=== PATIENT | male | born 1945 | race Caucasian/White ===

== ENCOUNTER 2017-04-14 14:43 | Inpatient (IN) | payer MEDICARE ==
[2017-04-14] MEDS: DILTIAZEM HCL 25 MG/5 ML VIAL IV PUSH (15:30)
[2017-04-14 16:26] LABS: PROTHROMBIN TIME - PATIENT 10.4 SEC (9.8-11.6)
[2017-04-14 16:32] LABS: ALT (GPT) 21 U/L (12-78); ANION GAP 10 MEQ/L (5-15); AST (GOT) 54 U/L (15-37); BLOOD UREA NITROGEN 45 MG/DL (7-18); CALCIUM 7.7 MG/DL (8.5-10.1); CHLORIDE 102 MEQ/L (98-107); CREATININE 1.75 MG/DL (0.60-1.30); GLOMERULAR FILTRATION RATE 38 ML/MIN (>89); GLUCOSE,RANDOM 196 MG/DL (74-106); POTASSIUM 3.4 MEQ/L (3.5-5.1); SODIUM (NA) 134 MEQ/L (136-145)
[2017-04-14 16:33] LABS: ALCOHOL LESS THAN 3 MG/DL (0-5)
[2017-04-14 16:34] LABS: ACETAMINOPHEN LESS THAN 2.0 MCG/ML (10.0-30.0)
[2017-04-14 16:39] LABS: AUTOMATED NEUTROPHIL # 8.6 TH/MM3 (1.8-7.7); BASOPHIL % 0.1 % (0.0-2.0); HEMATOCRIT 41.9 % (39.0-51.0); HEMOGLOBIN 14.6 GM/DL (13.0-17.0); LYMPH % 2.9 % (9.0-44.0); LYMPHOCYTE # 0.3 TH/MM3 (1.0-4.8); MEAN CELL VOLUME 99.2 FL (80.0-100.0); MEAN CORPUSCULAR HEMOGLOBIN 34.6 PG (27.0-34.0); MEAN CORPUSCULAR HGB CONC 34.9 % (32.0-36.0); MEAN PLATELET VOLUME 9.2 FL (7.0-11.0); MONOCYTE # 0.4 TH/MM3 (0-0.9); PLATELET COUNT 62 TH/MM3 (150-450); RED BLOOD COUNT 4.23 MIL/MM3 (4.50-5.90); RED CELL DISTRIBUTION WIDTH 13.3 % (11.6-17.2); WHITE BLOOD COUNT 9.2 TH/MM3 (4.0-11.0)
[2017-04-14 16:41] LABS: HEMO FLAGS AUTO DIFF
[2017-04-14 16:42] LABS: ALKALINE PHOSPHATASE 41 U/L (45-117); TOTAL BILIRUBIN ADULT 1.5 MG/DL (0.2-1.0); TROPONIN I 0.05 NG/ML (0.02-0.05)
[2017-04-14 17:00] LABS: BANDS 15 % (0-6); LYMPHOCYTES 2 % (9-44); METAMYELOCYTES 1 % (0-1); MONOCYTES 3 % (0-8); NEUTROPHIL # MANUAL DIFF 8.7 TH/MM3 (1.8-7.7); POLYS (SEG NEUTROPHILS) 79 % (16-70); TOXIC GRANULATION 1+ (NORMAL); TOXIC VACUOLATION PRESENT (NONE SEEN); WBC DIFF SAMPLE 100
[2017-04-14] MEDS: SODIUM CHLORID 0.9% 500 ML INJ 500 ML IV (17:00)
[2017-04-14 17:01] LABS: PLATELET ESTIMATE SMEAR LOW (NORMAL); PLATELET MORPHOLOGY NORMAL (NORMAL)
[2017-04-14 17:02] LABS: SCAN/DIFF FINAL DIFF MANUAL
[2017-04-14] MEDS: LORazepam 2 MG/ML VIAL IV PUSH ×2 (18:28→23:52)
[2017-04-14 19:41] LABS: SALICYLATES LESS THAN 1.7 MG/DL (2.8-20.0)
[2017-04-14] MEDS ORDERED: SODIUM CHLORIDE 0.9% FLUSH 10 ML FLUSH IV FLUSH ×2 (20:00→21:00)
[2017-04-14] MEDS: DEXT 5%-NACL 0.45% 1000 ML INJ 1,000 ML IV (20:00)
[2017-04-14] MEDS ORDERED: GLUCAGON 1 MG/ML VIAL IM (20:00)
[2017-04-14] MEDS ORDERED: LORazepam 1 MG TAB PO (20:00)
[2017-04-14] MEDS ORDERED: LORazepam 2 MG/ML VIAL IV PUSH ×2 (20:00)
[2017-04-14] MEDS ORDERED: DEXTROSE 50% IN WATER 50 ML VIAL(D50) IV PUSH (20:00)
[2017-04-14] MEDS ORDERED: NALOXONE HCL 0.4 MG/ML AMP IV PUSH (20:00)
[2017-04-14] MEDS ORDERED: FLUMAZENIL 0.5 MG/5 ML VIAL IV PUSH (20:00)
[2017-04-14] MEDS: SODIUM CHLOR 0.9% 1000 ML INJ 1,000 ML IV (20:17)
[2017-04-14] MEDS: cefTRIAXone INJ 2,000 MG in SODIUM CHLORIDE 0.9% INJ 100 ML IV (20:17)
[2017-04-14 20:41] LABS: AMMONIA LESS THAN 10 MCMOL/L (11-32)
[2017-04-14 20:46] LABS: BACTERIA, URINE FEW /hpf; BILIRUBIN, URINE NEG (NEG); BLOOD, URINE MOD (NEG); COMMENT (UR) CATH-CULTURE IND; CULTURE IF INDICATED CATH CULTURE IND; GLUCOSE,URINE NEG (NEG); GRANULAR CAST, URINE 10 /lpf; HYALINE CAST, URINE 4 /lpf (RARE); KETONE, URINE NEG (NEG); NITRITE,URINE NEG (NEG); PH, URINE 5.5 (5.0-8.5); SQUAMOUS EPITHELIAL CELL URINE <1 /hpf (0-5); URINE COLOR YELLOW (YELLW/STRAW); URINE LEUKOCYTE ESTERASE NEG (NEG)
[2017-04-14] MEDS: SODIUM CHLORIDE 0.9% FLUSH 10 ML FLUSH IV FLUSH (21:00)
[2017-04-14] MEDS: THIAMINE HCL 100 MG TAB PO (21:11)
[2017-04-14] MEDS: FOLIC ACID 1 MG TAB PO (21:11)
[2017-04-14 23:08] LABS: AMPHETAMINE, URINE NEG (NEG); BARBITURATES, URINE NEG (NEG); BENZODIAZEPINE,URINE NEG (NEG); CANNABINOIDS, URINE NEG (NEG); COCAINE, URINE NEG (NEG)
[2017-04-15] MEDS: CLINDAMYCIN 900 MG/NS PREMIX 50 ML IV ×3 (00:20→15:37)
[2017-04-15 06:50] LABS: AUTOMATED NEUTROPHIL # 6.7 TH/MM3 (1.8-7.7); BASOPHIL % 0.3 % (0.0-2.0); HEMATOCRIT 37.8 % (39.0-51.0); HEMOGLOBIN 13.1 GM/DL (13.0-17.0); LYMPH % 6.5 % (9.0-44.0); LYMPHOCYTE # 0.5 TH/MM3 (1.0-4.8); MEAN CELL VOLUME 99.3 FL (80.0-100.0); MEAN CORPUSCULAR HEMOGLOBIN 34.3 PG (27.0-34.0); MEAN CORPUSCULAR HGB CONC 34.6 % (32.0-36.0); MEAN PLATELET VOLUME 9.8 FL (7.0-11.0); MONO % 5.7 % (0.0-8.0); MONOCYTE # 0.4 TH/MM3 (0-0.9); NEUT % 87.5 % (16.0-70.0); PLATELET COUNT 52 TH/MM3 (150-450); RED BLOOD COUNT 3.81 MIL/MM3 (4.50-5.90); RED CELL DISTRIBUTION WIDTH 13.6 % (11.6-17.2); WHITE BLOOD COUNT 7.7 TH/MM3 (4.0-11.0)
[2017-04-15 06:59] LABS: HEMO FLAGS AUTO DIFF
[2017-04-15 07:10] LABS: ALBUMIN 2.6 GM/DL (3.4-5.0); ALT (GPT) 20 U/L (12-78); ANION GAP 9 MEQ/L (5-15); AST (GOT) 40 U/L (15-37); BICARBONATE 22.6 MEQ/L (21.0-32.0); BLOOD UREA NITROGEN 38 MG/DL (7-18); CALCIUM 7.6 MG/DL (8.5-10.1); CHLORIDE 107 MEQ/L (98-107); CREATININE 1.02 MG/DL (0.60-1.30); GLOMERULAR FILTRATION RATE 72 ML/MIN (>89); GLUCOSE,RANDOM 109 MG/DL (74-106); POTASSIUM 3.1 MEQ/L (3.5-5.1); SODIUM (NA) 139 MEQ/L (136-145)
[2017-04-15 07:18] LABS: ALKALINE PHOSPHATASE 34 U/L (45-117); TOTAL BILIRUBIN ADULT 1.2 MG/DL (0.2-1.0); TOTAL PROTEIN 6.1 GM/DL (6.4-8.2)
[2017-04-15] MEDS: DEXT 5%-NACL 0.45% 1000 ML INJ 1,000 ML IV (07:55)
[2017-04-15 08:00] LABS: BANDS 23 % (0-6); LYMPHOCYTES 2 % (9-44); MONOCYTES 3 % (0-8); NEUTROPHIL # MANUAL DIFF 7.3 TH/MM3 (1.8-7.7); PLATELET ESTIMATE SMEAR LOW (NORMAL); POLYS (SEG NEUTROPHILS) 72 % (16-70); WBC DIFF SAMPLE 100
[2017-04-15 08:01] LABS: PLATELET MORPHOLOGY NORMAL (NORMAL); SCAN/DIFF FINAL DIFF MANUAL
[2017-04-15 08:02] LABS: TOXIC GRANULATION 1+ (NORMAL)
[2017-04-15] MEDS: APIXABAN 5 MG TABLET PO ×2 (09:15→22:10)
[2017-04-15] MEDS: METOPROLOL SUCCINATE 50 MG EXTENDED RELEASE TAB PO (09:15)
[2017-04-15] MEDS: FOLIC ACID 1 MG TAB PO (09:16)
[2017-04-15] MEDS: chlordiazePOXIDE 25 MG CAP PO ×3 (09:16→18:03)
[2017-04-15] MEDS: SODIUM CHLORIDE 0.9% FLUSH 10 ML FLUSH IV FLUSH ×2 (09:17→21:12)
[2017-04-15] MEDS: PIPERACIL-TAZO 4.5 GM PREMIX 100 ML IV ×3 (09:17→21:00)
[2017-04-15] MEDS: THIAMINE HCL 100 MG TAB PO (09:39)
[2017-04-15] MEDS: POTASSIUM CHLORIDE 10 MEQ CONTROLLED RELEASE TAB PO (11:56)
[2017-04-15] MEDS: LORazepam 2 MG/ML VIAL IV PUSH (21:12)
[2017-04-15] MEDS: ATORVASTATIN 20 MG TAB PO (22:11)
[2017-04-16] MEDS: CLINDAMYCIN 900 MG/NS PREMIX 50 ML IV ×4 (00:04→23:22)
[2017-04-16] MEDS: PIPERACIL-TAZO 4.5 GM PREMIX 100 ML IV ×5 (03:47→20:38)
[2017-04-16] MEDS: LORazepam 2 MG/ML VIAL IV PUSH (04:30)
[2017-04-16 06:30] LABS: AUTOMATED NEUTROPHIL # 4.5 TH/MM3 (1.8-7.7); BASOPHIL % 0.1 % (0.0-2.0); EOSINOPHIL % 0.5 % (0.0-4.0); HEMATOCRIT 37.6 % (39.0-51.0); HEMOGLOBIN 12.8 GM/DL (13.0-17.0); LYMPH % 11.6 % (9.0-44.0); LYMPHOCYTE # 0.7 TH/MM3 (1.0-4.8); MEAN CELL VOLUME 101.1 FL (80.0-100.0); MEAN CORPUSCULAR HEMOGLOBIN 34.4 PG (27.0-34.0); MEAN PLATELET VOLUME 9.5 FL (7.0-11.0); MONO % 9.6 % (0.0-8.0); MONOCYTE # 0.5 TH/MM3 (0-0.9); NEUT % 78.2 % (16.0-70.0); PLATELET COUNT 47 TH/MM3 (150-450); RED BLOOD COUNT 3.72 MIL/MM3 (4.50-5.90); RED CELL DISTRIBUTION WIDTH 13.8 % (11.6-17.2); WHITE BLOOD COUNT 5.7 TH/MM3 (4.0-11.0)
[2017-04-16 06:35] LABS: HEMO FLAGS AUTO DIFF
[2017-04-16 07:01] LABS: ANION GAP 11 MEQ/L (5-15); BICARBONATE 23.5 MEQ/L (21.0-32.0); BLOOD UREA NITROGEN 31 MG/DL (7-18); CALCIUM 8.3 MG/DL (8.5-10.1); CHLORIDE 108 MEQ/L (98-107); CREATININE 1.09 MG/DL (0.60-1.30); GLOMERULAR FILTRATION RATE 66 ML/MIN (>89); GLUCOSE,RANDOM 96 MG/DL (74-106); POTASSIUM 3.7 MEQ/L (3.5-5.1); SODIUM (NA) 142 MEQ/L (136-145)
[2017-04-16 07:55] LABS: PLATELET ESTIMATE SMEAR LOW (NORMAL); PLATELET MORPHOLOGY NORMAL (NORMAL); SCAN/DIFF AUTO DIFF CONFIRMED
[2017-04-16] MEDS: chlordiazePOXIDE 25 MG CAP PO ×4 (09:00→18:22)
[2017-04-16] MEDS: FOLIC ACID 1 MG TAB PO ×2 (09:25→18:21)
[2017-04-16] MEDS: APIXABAN 5 MG TABLET PO ×3 (09:25→20:37)
[2017-04-16] MEDS: SODIUM CHLORIDE 0.9% FLUSH 10 ML FLUSH IV FLUSH ×2 (09:27→20:37)
[2017-04-16] MEDS: METOPROLOL SUCCINATE 50 MG EXTENDED RELEASE TAB PO ×2 (09:27→18:21)
[2017-04-16] MEDS: THIAMINE HCL 100 MG TAB PO ×2 (09:27→18:21)
[2017-04-16] MEDS: GADODIAMIDE PF 287 MG/ML 20 ML VIAL (for RAD MRI) IV PUSH (16:53)
[2017-04-16] MEDS: ATORVASTATIN 20 MG TAB PO (20:37)
[2017-04-16] MEDS: LORazepam 2 MG TAB PO (20:37)
[2017-04-17] MEDS: PIPERACIL-TAZO 4.5 GM PREMIX 100 ML IV ×3 (02:52→14:18)
[2017-04-17] MEDS: METOPROLOL SUCCINATE 50 MG EXTENDED RELEASE TAB PO (09:00)
[2017-04-17] MEDS: CLINDAMYCIN 900 MG/NS PREMIX 50 ML IV ×2 (09:26→15:16)
[2017-04-17] MEDS: SODIUM CHLORIDE 0.9% FLUSH 10 ML FLUSH IV FLUSH ×2 (09:27→20:05)
[2017-04-17] MEDS: FOLIC ACID 1 MG TAB PO (09:27)
[2017-04-17] MEDS: APIXABAN 5 MG TABLET PO ×2 (09:27→20:05)
[2017-04-17] MEDS: THIAMINE HCL 100 MG TAB PO (09:28)
[2017-04-17] MEDS: LIDOCAINE HCL 1% 50 ML VIAL (10:00)
[2017-04-17] MEDS: ceFAZolin 2 GM PREMIX 50 ML IV (18:06)
[2017-04-17] MEDS: ATORVASTATIN 20 MG TAB PO (20:04)
[2017-04-18] MEDS: ceFAZolin 2 GM PREMIX 50 ML IV ×3 (02:02→17:25)
[2017-04-18] MEDS: SODIUM CHLORIDE 0.9% FLUSH 10 ML FLUSH IV FLUSH ×3 (02:02→21:13)
[2017-04-18 05:07] LABS: AUTOMATED NEUTROPHIL # 3.3 TH/MM3 (1.8-7.7); BASOPHIL % 0.4 % (0.0-2.0); EOSINOPHIL % 0.9 % (0.0-4.0); HEMATOCRIT 38.4 % (39.0-51.0); HEMOGLOBIN 13.2 GM/DL (13.0-17.0); LYMPH % 13.9 % (9.0-44.0); LYMPHOCYTE # 0.6 TH/MM3 (1.0-4.8); MEAN CELL VOLUME 99.4 FL (80.0-100.0); MEAN CORPUSCULAR HEMOGLOBIN 34.1 PG (27.0-34.0); MEAN CORPUSCULAR HGB CONC 34.4 % (32.0-36.0); MEAN PLATELET VOLUME 9.5 FL (7.0-11.0); MONOCYTE # 0.3 TH/MM3 (0-0.9); NEUT % 78.8 % (16.0-70.0); PLATELET COUNT 79 TH/MM3 (150-450); RED BLOOD COUNT 3.87 MIL/MM3 (4.50-5.90); RED CELL DISTRIBUTION WIDTH 13.8 % (11.6-17.2); WHITE BLOOD COUNT 4.2 TH/MM3 (4.0-11.0)
[2017-04-18 05:18] LABS: HEMO FLAGS DIFF FINAL
[2017-04-18] MEDS: THIAMINE HCL 100 MG TAB PO (08:53)
[2017-04-18] MEDS: APIXABAN 5 MG TABLET PO ×2 (08:53→21:13)
[2017-04-18] MEDS: METOPROLOL SUCCINATE 50 MG EXTENDED RELEASE TAB PO (08:53)
[2017-04-18] MEDS: LEVOFLOXACIN 750 MG TAB PO (08:54)
[2017-04-18] MEDS: FOLIC ACID 1 MG TAB PO (08:54)
[2017-04-18] MEDS: GENTAMICIN SULFATE 0.1% CREAM 15 GM TOPICAL (14:30)
[2017-04-18] MEDS: ATORVASTATIN 20 MG TAB PO (21:13)
[2017-04-19] MEDS: ceFAZolin 2 GM PREMIX 50 ML IV ×2 (01:35→09:41)
[2017-04-19] MEDS: SODIUM CHLORIDE 0.9% FLUSH 10 ML FLUSH IV FLUSH ×2 (09:40→20:32)
[2017-04-19] MEDS: FOLIC ACID 1 MG TAB PO (09:40)
[2017-04-19] MEDS: LEVOFLOXACIN 750 MG TAB PO (09:40)
[2017-04-19] MEDS: APIXABAN 5 MG TABLET PO ×2 (09:40→20:33)
[2017-04-19] MEDS: METOPROLOL SUCCINATE 50 MG EXTENDED RELEASE TAB PO (09:40)
[2017-04-19] MEDS: THIAMINE HCL 100 MG TAB PO (09:42)
[2017-04-19] MEDS: GENTAMICIN SULFATE 0.1% CREAM 15 GM TOPICAL (12:41)
[2017-04-19] MEDS: AMPICILLIN-SULBACTAM INJ 3 GM in SODIUM CHLORIDE 0.9% INJ 100 ML IV ×2 (14:56→20:32)
[2017-04-19] MEDS: ATORVASTATIN 20 MG TAB PO (20:32)
[2017-04-20] MEDS: AMPICILLIN-SULBACTAM INJ 3 GM in SODIUM CHLORIDE 0.9% INJ 100 ML IV ×4 (02:09→19:32)
[2017-04-20] MEDS: SODIUM CHLORIDE 0.9% FLUSH 10 ML FLUSH IV FLUSH ×2 (08:46→19:33)
[2017-04-20] MEDS: APIXABAN 5 MG TABLET PO ×2 (08:47→19:33)
[2017-04-20] MEDS: LEVOFLOXACIN 750 MG TAB PO (08:47)
[2017-04-20] MEDS: THIAMINE HCL 100 MG TAB PO (08:47)
[2017-04-20] MEDS: METOPROLOL SUCCINATE 50 MG EXTENDED RELEASE TAB PO (08:47)
[2017-04-20] MEDS: ATORVASTATIN 20 MG TAB PO (19:33)
[2017-04-21] MEDS: AMPICILLIN-SULBACTAM INJ 3 GM in SODIUM CHLORIDE 0.9% INJ 100 ML IV ×2 (02:49→08:51)
[2017-04-21] MEDS: LEVOFLOXACIN 750 MG TAB PO (08:50)
[2017-04-21] MEDS: APIXABAN 5 MG TABLET PO (08:50)
[2017-04-21] MEDS: METOPROLOL SUCCINATE 50 MG EXTENDED RELEASE TAB PO (08:50)
[2017-04-21] MEDS: SODIUM CHLORIDE 0.9% FLUSH 10 ML FLUSH IV FLUSH (08:50)
[2017-04-21] MEDS: THIAMINE HCL 100 MG TAB PO (08:50)
== END 2017-04-21 14:13 | DRG 854 ==
LOC: N04B 04-17 00:53 → NEPE 14:43 → NEDA 18:30 → HCIS 21:20
PROC: 0JBQ0ZZ Excision of Right Foot Subcutaneous Tissue and Fascia, Open Approach (ICD-10-PCS; principal; 2017-04-17)
DX: A41.01 Sepsis due to Methicillin susceptible Staphylococcus aureus (principal); F10.231 Alcohol dependence with withdrawal delirium; N17.9 Acute kidney failure, unspecified; L03.115 Cellulitis of right lower limb; I48.91 Unspecified atrial fibrillation; G62.9 Polyneuropathy, unspecified; L97.519 Non-pressure chronic ulcer of other part of right foot with unspecified severity; I10 Essential (primary) hypertension; E16.2 Hypoglycemia, unspecified; E78.5 Hyperlipidemia, unspecified; R65.20 Severe sepsis without septic shock; A41.4 Sepsis due to anaerobes; E87.6 Hypokalemia; Y90.0 Blood alcohol level of less than 20 mg/100 ml; Z79.01 Long term (current) use of anticoagulants; Z87.891 Personal history of nicotine dependence
CPT/HCPCS: 70450; 71045; 73660; 73720; 80048; 80053; 80307; 81001; 82140; 82948; 84443; 84484; 85007; 85025; 85027; 85610; 85730; 86403; 87040; 87070; 87077; 87086; 87147; 87185; 87186; 87205; 93005; 93923; 96361; 96374; 96375; 97110-GP; 97116-GP; 97162-GP; 99285-25

== ENCOUNTER 2017-05-31 16:56 | Emergency (ER) | payer MEDICARE ==
[~2017-05-31 16:56] MED LIST: AMLO10TA2 PO; APIX5TAB PO; ATOR20TA15 PO; AUGM875T3 PO; LEVA750T9 PO; METO1TAB9 PO; MULT1TAB46 PO; THIA100 PO
[2017-05-31 17:26] VITALS: BP 106/63; PULSE 78; RESP 20; TEMP 97.3; O2SAT 98
[2017-05-31 20:05] LABS: AUTOMATED NEUTROPHIL # 2.4 TH/MM3 (1.8-7.7); BASOPHIL % 0.7 % (0.0-2.0); EOSINOPHIL # 0.1 TH/MM3 (0-0.4); EOSINOPHIL % 1.5 % (0.0-4.0); HEMATOCRIT 42.9 % (39.0-51.0); HEMOGLOBIN 14.9 GM/DL (13.0-17.0); LYMPH % 32.1 % (9.0-44.0); LYMPHOCYTE # 1.4 TH/MM3 (1.0-4.8); MEAN CELL VOLUME 95.1 FL (80.0-100.0); MEAN CORPUSCULAR HGB CONC 34.7 % (32.0-36.0); MEAN PLATELET VOLUME 7.9 FL (7.0-11.0); MONO % 12.1 % (0.0-8.0); MONOCYTE # 0.5 TH/MM3 (0-0.9); NEUT % 53.6 % (16.0-70.0); PLATELET COUNT 175 TH/MM3 (150-450); RED BLOOD COUNT 4.51 MIL/MM3 (4.50-5.90); RED CELL DISTRIBUTION WIDTH 14.3 % (11.6-17.2); WHITE BLOOD COUNT 4.5 TH/MM3 (4.0-11.0)
[2017-05-31 20:32] LABS: ALBUMIN 2.5 GM/DL (3.4-5.0); AST (GOT) 12 U/L (15-37); BICARBONATE 22.4 MEQ/L (21.0-32.0); BLOOD UREA NITROGEN 13 MG/DL (7-18); CALCIUM 7.8 MG/DL (8.5-10.1); CHLORIDE 107 MEQ/L (98-107); CREATININE 1.15 MG/DL (0.60-1.30); GLOMERULAR FILTRATION RATE 62 ML/MIN (>89); GLUCOSE,RANDOM 105 MG/DL (74-106); SODIUM (NA) 140 MEQ/L (136-145)
[2017-05-31 20:33] LABS: BILIRUBIN, URINE NEG (NEG); BLOOD, URINE SMALL (NEG); CALCIUM OXALATE CRYSTALS,URINE FEW /hpf; GLUCOSE,URINE NEG (NEG); HYALINE CAST, URINE 1 /lpf (RARE); KETONE, URINE NEG (NEG); MUCUS URINE FEW /lpf (OCC); NITRITE,URINE NEG (NEG); SQUAMOUS EPITHELIAL CELL URINE <1 /hpf (0-5); URINE COLOR YELLOW (YELLW/STRAW); URINE LEUKOCYTE ESTERASE NEG (NEG)
[2017-05-31 20:34] LABS: ALT (GPT) 10 U/L (12-78)
[2017-05-31 20:37] LABS: ALKALINE PHOSPHATASE 70 U/L (45-117); TOTAL BILIRUBIN ADULT 0.8 MG/DL (0.2-1.0); TOTAL PROTEIN 5.5 GM/DL (6.4-8.2)
[2017-06-01 00:24] VITALS: BP 121/69; PULSE 80; RESP 18; O2SAT 98
[2017-06-01] MEDS ORDERED: BACT800T5 PO (01:23)
[2017-06-01] MEDS ORDERED: SULFAMETHOXAZOLE-TRIMETHOPRIM DS 800-160 MG TAB PO ONE (01:30)
[2017-06-01] MEDS ORDERED: POTASSIUM CHLORIDE 20 MEQ CONTROLLED RELEASE TAB PO ONE (01:30)
--- NOTE | 2017-06-01 01:30 | PD ---
HPI Chief Complaint: Abnormal Results Time Seen by Provider: 01:25 Travel History International Travel<30 days: No Contact w/Intl Traveler<30days: No Traveled to known affect area: No History of Present Illness HPI 71-year-old white male presents emergency department requesting evaluation of diarrhea. He states that he has been having loose stools now for nearly 2 months. He states that he has been eating and drinking normally. He has had no fever or chills. No chest pain, shortness of breath, nausea, vomiting, abdominal pain or urinary symptoms. Denies any hematochezia or melena. No dizziness or passing out. He states that his finally made him come in this evening to be evaluated. He has not seen a medical doctor regarding this as of yet. PFSH Past Medical History High Cholesterol: Yes Diabetes: Yes Hypertension: Yes Tetanus Vaccination: > 5 Years Past Surgical History Surgical History: No Previous Surgery Social History Alcohol Use: Yes (beer daily) Tobacco Use: No Substance Use: No Allergies-Medications (Allergen,Severity, Reaction): Coded Allergies: No Known Allergies (Verified Allergy, Unknown, 04/14/17) Reported Meds & Prescriptions Reported Meds & Active Scripts Active Bactrim DS (Sulfamethoxazole-Trimethoprim) 800-160 Mg Tab 1 Tab PO BID Multi Vitamin Daily (Multiple Vitamin) 1 Tab Tab 1 Tab PO DAILY 30 Days Gnp Vitamin B-1 (Thiamine HCl) 100 Mg Tab 100 Mg PO DAILY 30 Days Metoprolol Succinate ER 24 HR (Metoprolol Succinate) 50 Mg Tab 100 Mg PO DAILY 30 Days Eliquis (Apixaban) 5 Mg Tab 5 Mg PO BID Amlodipine (Amlodipine Besylate) 10 Mg Tab 10 Mg PO DAILY Atorvastatin (Atorvastatin Calcium) 20 Mg Tab 20 Mg PO HS Review of Systems Except as stated in HPI: all other systems reviewed are Neg Physical Exam Narrative GENERAL: Well-developed, well-nourished in no apparent distress. Nontoxic appearing. Patient is examined with a nurse present. HEAD: Normocephalic, atraumatic. EYES: Pupils equal round and reactive. Extraocular motions intact. No scleral icterus. No injection or drainage. ENT: Nose clear. Throat without erythema, tonsillar hypertrophy or exudate. Uvula midline. Airway patent. NECK: Trachea midline. Supple, nontender, moves head freely. No central bony tenderness or spasm. CARDIOVASCULAR: Regular rate and rhythm without murmurs, gallops, or rubs. RESPIRATORY: Clear to auscultation. Breath sounds equal bilaterally. No wheezes , rales, or rhonchi. GASTROINTESTINAL: Abdomen soft, non-tender, nondistended. No hepato-splenomegaly , or palpable masses. No guarding. Rectal: The rectum is devoid of stool. He has light brown mucus. Prostate is normal. No masses. Guaiac negative. EXTREMITIES: No clubbing, cyanosis, or edema. No joint tenderness. BACK: Nontender without deformity. No flank tenderness. NEUROLOGICAL: Awake, alert and oriented x 3 .Cranial nerves grossly intact. Motor and sensory grossly within normal limits. Normal speech. Data Data Last Documented VS Vital Signs Date Time Temp Pulse Resp B/P (MAP) Pulse Ox O2 Delivery O2 Flow Rate FiO2 06/01/17 00:24 80 18 121/69 (86) 98 Room Air 05/31/17 17:26 97.3 Orders Orders Complete Blood Count With Diff (05/31/17 17:32) Comprehensive Metabolic Panel (05/31/17 17:32) Urinalysis - C+S If Indicated (05/31/17 17:32) Sulfamet-Trimeth Ds 800-160 Mg (Bactrim (06/01/17 01:30) Ed Discharge Order (06/01/17 01:21) Potassium Chloride (Kcl) (06/01/17 01:30) Labs Laboratory Tests Test 05/31/17 18:50 White Blood Count 4.5 TH/MM3 Red Blood Count 4.51 MIL/MM3 Hemoglobin 14.9 GM/DL Hematocrit 42.9 % Mean Corpuscular Volume 95.1 FL Mean Corpuscular Hemoglobin 33.0 PG Mean Corpuscular Hemoglobin Concent 34.7 % Red Cell Distribution Width 14.3 % Platelet Count 175 TH/MM3 Mean Platelet Volume 7.9 FL Neutrophils (%) (Auto) 53.6 % Lymphocytes (%) (Auto) 32.1 % Monocytes (%) (Auto) 12.1 % Eosinophils (%) (Auto) 1.5 % Basophils (%) (Auto) 0.7 % Neutrophils # (Auto) 2.4 TH/MM3 Lymphocytes # (Auto) 1.4 TH/MM3 Monocytes # (Auto) 0.5 TH/MM3 Eosinophils # (Auto) 0.1 TH/MM3 Basophils # (Auto) 0.0 TH/MM3 CBC Comment DIFF FINAL Differential Comment Urine Color YELLOW Urine Turbidity HAZY Urine pH 6.0 Urine Specific [place] 1.021 Urine Protein 30 mg/dL Urine Glucose (UA) NEG mg/dL Urine Ketones NEG mg/dL Urine Occult Blood SMALL Urine Nitrite NEG Urine Bilirubin NEG Urine Urobilinogen LESS THAN 2.0 MG/DL Urine Leukocyte Esterase NEG Urine RBC 39 /hpf Urine WBC 3 /hpf Urine Squamous Epithelial Cells <1 /hpf Urine Calcium Oxalate Crystals FEW /hpf Urine Hyaline Casts 1 /lpf Urine Mucus FEW /lpf Microscopic Urinalysis Comment CULT NOT INDICATED Blood Urea Nitrogen 13 MG/DL Creatinine 1.15 MG/DL Random Glucose 105 MG/DL Total Protein 5.5 GM/DL Albumin 2.5 GM/DL Calcium Level 7.8 MG/DL Alkaline Phosphatase 70 U/L Aspartate Amino Transf (AST/SGOT) 12 U/L Alanine Aminotransferase (ALT/SGPT) 10 U/L Total Bilirubin 0.8 MG/DL Sodium Level 140 MEQ/L Potassium Level 3.2 MEQ/L Chloride Level 107 MEQ/L Carbon Dioxide Level 22.4 MEQ/L Anion Gap 11 MEQ/L Estimat Glomerular Filtration Rate 62 ML/MIN [facility] Medical Decision Making Medical Screen Exam Complete: Yes Emergency Medical Condition: Yes Medical Record Reviewed: Yes Differential Diagnosis Differential diagnosis: Anemia, GI bleed, infectious diarrhea, colitis, electrolyte abnormality, UTI, IBS Narrative Course Patient's laboratory tests have been reviewed. His potassium is 3.2 he is given 40 mEq p.o. His rectal exam is guaiac negative. There is no stool in the vault. He is resting comfortable. His been eating and drinking. I do not believe that he is septic. He does not report any foul smelling stool consistent with C. difficile. His urine does show WBCs and RBCs. He will be treated for potential UTI I reviewed his record from prior visit showing UTI with similar presentation. Patient given Bactrim DS and 40 mg of potassium p.o. at discharge. This is diarrhea, UTI, hypokalemia [facility] Point of Care Internal Pos. & Neg. Controls: Passed Fecal Specimen Occult Blood: Negative Diagnosis Primary Impression: Diarrhea Additional Impressions: UTI Hypokalemia Referrals: [facility] 2 days Patient Instructions: General Instructions Additional Instructions: Rest. Increase fluids. Bactrim DS. Avoid alcohol. Eat a potassium rich diet. Recheck with the [facility] in 2 days. Return to the ER for any problems. Med/Other Pt SpecificInfo: Prescription(s) given Scripts Sulfamethoxazole-Trimethoprim (Bactrim DS) 800-160 Mg Tab 1 TAB PO BID for Infection, #14 TAB 0 Refills Prov: Matt Schmitt MD 06/01/17 Disposition: 01 DISCHARGE HOME Condition: Stable Tu Boucher Jun 01, 2017 01:30
== END 2017-06-01 02:01 | disposition home or self-care (01) ==
LOC: NEPD 16:56
DX: R19.7 Diarrhea, unspecified (principal); N39.0 Urinary tract infection, site not specified; E87.6 Hypokalemia; E78.00 Pure hypercholesterolemia, unspecified; E11.9 Type 2 diabetes mellitus without complications; I10 Essential (primary) hypertension
CPT/HCPCS: 80053; 81001; 85025; 99283